=== PATIENT | female | born 1995 | race African-American/Black ===

== ENCOUNTER 2019-09-27 11:09 | Emergency (ER) | payer MEDICAID, OTHER ==
[~2019-09-27] VITALS: Ht 160 cm; Wt 66.4 kg
[~2019-09-27 11:09] MED LIST: ALBUTEROL INHALER; ARIP5SOL2 PO; ATOM100C PO; TRAZ150T79 PO
[2019-09-27] MEDS ORDERED: LIDOCAINE 1% 10 ML VIAL INJ ONE (12:15)
[2019-09-27 12:45] VITALS: BP 111/79
== END 2019-09-27 13:32 | disposition home or self-care (01) ==
LOC: EMS 11:09
DX: N75.0 Cyst of Bartholin's gland (principal); J45.909 Unspecified asthma, uncomplicated; F31.9 Bipolar disorder, unspecified; F20.9 Schizophrenia, unspecified; F12.90 Cannabis use, unspecified, uncomplicated; Z91.040 Latex allergy status

== ENCOUNTER 2021-04-02 02:06 | Emergency (ER) | payer OTHER ==
[~2021-04-02] VITALS: Ht 154.9 cm; Wt 90.9 kg
[2021-04-02 03:07] VITALS: BP 122/71
== END 2021-04-02 03:16 | disposition home or self-care (01) ==
LOC: EMS 02:07
DX: T43.591A Poisoning by other antipsychotics and neuroleptics, accidental (unintentional), initial encounter (principal); F32.9 Major depressive disorder, single episode, unspecified; F20.9 Schizophrenia, unspecified; Y92.89 Other specified places as the place of occurrence of the external cause
CPT/HCPCS: 93005; 99283

== ENCOUNTER 2022-06-27 14:34 | Emergency (ER) | payer OTHER ==
[~2022-06-27] VITALS: Ht 157.5 cm; Wt 91.8 kg
[2022-06-27 14:52] VITALS: BP 107/73
[2022-06-27] MEDS ORDERED: MELA3TAB89 PO (14:56)
[2022-06-27] MEDS ORDERED: PALI1.5T7 PO (14:56)
[2022-06-27 15:29] LABS: COVID AG,FIA SOURCE NASAL SWAB
[2022-06-27 15:51] LABS: INFLUENZA TYPE A NEGATIVE FOR TYPE A (NEGATIVE); INFLUENZA TYPE B NEGATIVE FOR TYPE B (NEGATIVE)
[2022-06-27] MEDS ORDERED: BENZ1LOZ50 PO (16:51)
[2022-06-27] MEDS ORDERED: BENZ-70 PO (16:51)
== END 2022-06-27 17:02 | disposition home or self-care (01) ==
LOC: EMS 14:34
DX: J06.9 Acute upper respiratory infection, unspecified (principal); F31.9 Bipolar disorder, unspecified; J45.909 Unspecified asthma, uncomplicated; F20.9 Schizophrenia, unspecified; Z91.040 Latex allergy status; Z79.899 Other long term (current) drug therapy; Z20.822 Contact with and (suspected) exposure to COVID-19
CPT/HCPCS: 71045; 87804; 99284

== ENCOUNTER 2022-07-03 11:04 | Emergency (ER) | payer OTHER ==
[~2022-07-03] VITALS: Ht 165.1 cm; Wt 109.1 kg
[~2022-07-03 11:04] MED LIST changes: -ALBUTEROL INHALER; -ARIP5SOL2 PO; -ATOM100C PO; +BENZ-70 PO; +BENZ1LOZ50 PO; +MELA3TAB89 PO; +PALI1.5T7 PO; -TRAZ150T79 PO
[2022-07-03 12:15] LABS: BASOPHILS % (AUTO) 0.2 % (0.0-2.0); EOSINOPHILS % (AUTO) 1.3 % (1.0-6.0); HEMATOCRIT 34.9 % (36-46); HEMOGLOBIN 12.1 g/dL (12.0-16.0); LYMPHOCYTES % (AUTO) 9.5 % (22.0-44.0); MEAN CORPUSCULAR HEMOGLOBIN 30.1 pg (26.0-34.0); MEAN CORPUSCULAR HGB CONC 34.5 G/dL (31.0-37.0); MEAN CORPUSCULAR VOLUME 87 fL (80-100); MONOCYTES # (AUTO) 0.5 K/uL (0.1-1.0); NEUTROPHILS # (AUTO) 8.7 K/uL (1.8-7.7); PLATELET COUNT (AUTO) 311 K/uL (150-450); RED BLOOD CELL COUNT(AUTO) 4.01 MIL/uL (4.00-5.20); RED CELL DISTRIBUTION WIDTH 13.7 % (11.5-14.5)
[2022-07-03] MEDS ORDERED: ONDANSETRON HCL 4 MG/2 ML VIAL IVP ONE (12:15)
[2022-07-03] MEDS ORDERED: KETOROLAC TROMETHAMINE 30 MG/ML VIAL IVP ONE (12:15)
[2022-07-03] MEDS ORDERED: SODIUM CHLORIDE 0.9% 1,000 ML IV ONE (12:15)
[2022-07-03 12:22] LABS: ANION GAP 10 mmol/L (8-16); CALCIUM, TOTAL 9.1 mg/dL (8.8-10.5); CARBON DIOXIDE 24 mmol/L (22-29); CHLORIDE 101 mmol/L (98-107); CREATININE 0.86 mg/dL (0.60-1.30); GLUCOSE,RANDOM 120 mg/dL (70-110); POTASSIUM 3.6 mmol/L (3.5-5.1); SODIUM SERUM 135 mmol/L (136-145); UREA NITROGEN, BLOOD 11 mg/dL (7-18)
[2022-07-03 12:25] LABS: GLOMERULAR FILTR. RATE CALC > 60 mL/min (>60)
[2022-07-03 12:35] LABS: ALANINE AMINOTRANSFERASE 49 U/L (12-78); ALBUMIN 3.4 g/dL (3.4-5.0); ALKALINE PHOSPHATASE 92 U/L (46-116); ASPARTATE AMINOTRANSFERASE 18 U/L (15-37); BILIRUBIN,TOTAL 0.3 mg/dL (0.1-1.0); HCG,QUANTITATIVE < 1 mIU/mL (0-6); LIPASE 58 U/L (73-393); TOTAL PROTEIN, SERUM 7.7 g/dL (6.4-8.2)
[2022-07-03 13:14] LABS: APPEARANCE,URINE CLEAR (CLEAR); BILIRUBIN,URINE NEGATIVE (NEGATIVE); GLUCOSE, URINE (UA) NEGATIVE (NEGATIVE); KETONES,URINE NEGATIVE (NEGATIVE); LEUKOCYTE ESTERASE ,URINE NEGATIVE (NEGATIVE); NITRATE,URINE NEGATIVE (NEGATIVE); OCCULT BLOOD,URINE NEGATIVE (NEGATIVE); PH,URINE 6.5 (5.0-8.0); PROTEIN,URINE NEGATIVE (NEGATIVE); SPECIFIC GRAVITIY, URINE 1.025 (1.003-1.030); UROBILINOGEN,URINE <=1.0 mg/dL (<=1.0)
[2022-07-03 14:00] VITALS: BP 116/69
== END 2022-07-03 14:22 | disposition home or self-care (01) ==
LOC: EMS 11:06
DX: R10.31 Right lower quadrant pain (principal); R10.32 Left lower quadrant pain; D27.0 Benign neoplasm of right ovary; J45.909 Unspecified asthma, uncomplicated; F31.9 Bipolar disorder, unspecified; F20.9 Schizophrenia, unspecified; F17.210 Nicotine dependence, cigarettes, uncomplicated; Z91.040 Latex allergy status
CPT/HCPCS: 99284; 74176; 96374; 96361; 96375; 80053; 81003; 83690; 84702; 85025; 36415; J1885; J2405; J7030

== ENCOUNTER 2022-09-22 11:17 | Emergency (ER) | payer OTHER ==
[~2022-09-22] VITALS: Ht 157.5 cm; Wt 96.8 kg
[~2022-09-22 11:17] MED LIST changes: -BENZ1LOZ50 PO; +BENZ1LOZ77 PO
[2022-09-22 14:10] LABS: BASOPHILS % (AUTO) 0.8 % (0.0-2.0); EOSINOPHILS % (AUTO) 3.4 % (1.0-6.0); HEMATOCRIT 43.5 % (36-46); HEMOGLOBIN 14.6 g/dL (12.0-16.0); LYMPHOCYTES # (AUTO) 2.6 K/uL (1.0-4.8); LYMPHOCYTES % (AUTO) 36.7 % (22.0-44.0); MEAN CORPUSCULAR HEMOGLOBIN 30.1 pg (26.0-34.0); MEAN CORPUSCULAR HGB CONC 33.6 G/dL (31.0-37.0); MEAN CORPUSCULAR VOLUME 90 fL (80-100); MONOCYTES # (AUTO) 0.4 K/uL (0.1-1.0); MONOCYTES % (AUTO) 5.1 % (2.0-9.0); NEUTROPHILS # (AUTO) 3.7 K/uL (1.8-7.7); PLATELET COUNT (AUTO) 366 K/uL (150-450); RED BLOOD CELL COUNT(AUTO) 4.87 MIL/uL (4.00-5.20); RED CELL DISTRIBUTION WIDTH 13.4 % (11.5-14.5)
[2022-09-22 14:25] LABS: ANION GAP 9 mmol/L (8-16); CARBON DIOXIDE 25 mmol/L (22-29); CHLORIDE 100 mmol/L (98-107); CREATININE 1.03 mg/dL (0.60-1.30); GLOMERULAR FILTR. RATE CALC > 60 mL/min (>60); GLUCOSE,RANDOM 86 mg/dL (70-110); POTASSIUM 3.8 mmol/L (3.5-5.1); SODIUM SERUM 134 mmol/L (136-145); UREA NITROGEN, BLOOD 10 mg/dL (7-18)
[2022-09-22 14:31] LABS: ALANINE AMINOTRANSFERASE 65 U/L (12-78); ALBUMIN 3.9 g/dL (3.4-5.0); ALKALINE PHOSPHATASE 129 U/L (46-116); ASPARTATE AMINOTRANSFERASE 20 U/L (15-37); BILIRUBIN,TOTAL 0.3 mg/dL (0.1-1.0); TOTAL PROTEIN, SERUM 9.1 g/dL (6.4-8.2)
[2022-09-22 14:34] VITALS: BP 104/58
== END 2022-09-22 15:23 | disposition home or self-care (01) ==
LOC: EMS 11:38
DX: R07.89 Other chest pain (principal); R42 Dizziness and giddiness; F41.9 Anxiety disorder, unspecified; F25.9 Schizoaffective disorder, unspecified; J45.909 Unspecified asthma, uncomplicated; F31.9 Bipolar disorder, unspecified; F17.210 Nicotine dependence, cigarettes, uncomplicated
CPT/HCPCS: 80053; 85025; 87389; 87491; 87591; 93005; 99284

== ENCOUNTER 2023-02-04 22:27 | Emergency (ER) | payer OTHER ==
[~2023-02-04] VITALS: Ht 162.6 cm; Wt 65.9 kg
[~2023-02-04 22:27] MED LIST changes: +BENZ-227 PO; -BENZ-70 PO
[2023-02-04 22:42] VITALS: BP 130/70
== END 2023-02-05 04:14 | disposition home or self-care (01) ==
LOC: EMS 22:31
DX: F25.9 Schizoaffective disorder, unspecified (principal); J45.909 Unspecified asthma, uncomplicated; F31.9 Bipolar disorder, unspecified; F17.210 Nicotine dependence, cigarettes, uncomplicated; Z91.040 Latex allergy status
CPT/HCPCS: 99284; Z7502

== ENCOUNTER 2023-04-18 19:27 | Emergency (ER) | payer OTHER ==
[~2023-04-18] VITALS: Ht 157.5 cm; Wt 95.9 kg
[2023-04-18 20:23] VITALS: BP 122/74
[2023-04-18 22:35] LABS: BASOPHILS % (AUTO) 0.3 % (0.0-2.0); HEMATOCRIT 36.6 % (36-46); HEMOGLOBIN 12.3 g/dL (12.0-16.0); LYMPHOCYTES # (AUTO) 2.4 K/uL (1.0-4.8); LYMPHOCYTES % (AUTO) 26.7 % (22.0-44.0); MEAN CORPUSCULAR HEMOGLOBIN 29.8 pg (26.0-34.0); MEAN CORPUSCULAR HGB CONC 33.6 G/dL (31.0-37.0); MEAN CORPUSCULAR VOLUME 89 fL (80-100); MONOCYTES # (AUTO) 0.6 K/uL (0.1-1.0); MONOCYTES % (AUTO) 6.7 % (2.0-9.0); NEUTROPHILS # (AUTO) 5.8 K/uL (1.8-7.7); NEUTROPHILS % (AUTO) 64.3 % (40.0-70.0); PLATELET COUNT (AUTO) 372 K/uL (150-450); RED BLOOD CELL COUNT(AUTO) 4.13 MIL/uL (4.00-5.20); RED CELL DISTRIBUTION WIDTH 13.2 % (11.5-14.5)
[2023-04-18 22:45] LABS: ANION GAP 10 mmol/L (8-16); CALCIUM, TOTAL 9.2 mg/dL (8.8-10.5); CARBON DIOXIDE 26 mmol/L (22-29); CHLORIDE 103 mmol/L (98-107); CREATININE 0.73 mg/dL (0.60-1.30); GLOMERULAR FILTR. RATE CALC > 60 mL/min (>60); GLUCOSE,RANDOM 95 mg/dL (70-110); POTASSIUM 3.9 mmol/L (3.5-5.1); SODIUM SERUM 139 mmol/L (136-145)
[2023-04-18 22:51] LABS: ALANINE AMINOTRANSFERASE 35 U/L (12-78); ALBUMIN 3.3 g/dL (3.4-5.0); ALKALINE PHOSPHATASE 95 U/L (46-116); ASPARTATE AMINOTRANSFERASE 22 U/L (15-37); BILIRUBIN,TOTAL 0.3 mg/dL (0.1-1.0); TOTAL PROTEIN, SERUM 7.3 g/dL (6.4-8.2)
== END 2023-04-18 23:16 | disposition home or self-care (01) ==
LOC: EMS 19:29
DX: F41.9 Anxiety disorder, unspecified (principal); J45.909 Unspecified asthma, uncomplicated; F31.9 Bipolar disorder, unspecified; F20.9 Schizophrenia, unspecified; F17.210 Nicotine dependence, cigarettes, uncomplicated; R20.2 Paresthesia of skin; Z91.040 Latex allergy status
CPT/HCPCS: 80053; 84703; 85025; 99283

== ENCOUNTER 2024-04-17 15:33 | Emergency (ER) | payer OTHER ==
[~2024-04-17] VITALS: Ht 157.5 cm; Wt 195.0 kg
[~2024-04-17 15:33] MED LIST changes: -BENZ1LOZ77 PO; +CEPACLZ PO
[2024-04-17 15:45] VITALS: BP 107/63
[2024-04-17] MEDS: SODIUM CHLORIDE 0.9% 1,000 ML IV ONE (16:24)
[2024-04-17] MEDS: DiphenhydrAMINE HCL 50 MG/ML VIAL IVP ONE (16:43)
[2024-04-17] MEDS: KETOROLAC TROMETHAMINE 30 MG/ML VIAL IVP ONE (16:43)
[2024-04-17] MEDS: METOCLOPRAMIDE HCL 5 MG/ML 2 ML VIAL IVP ONE (16:44)
[2024-04-17 16:55] LABS: BASOPHILS % (AUTO) 0.3 % (0.0-2.0); EOSINOPHILS % (AUTO) 3.5 % (1.0-6.0); HEMATOCRIT 40.6 % (36-46); HEMOGLOBIN 13.7 g/dL (12.0-16.0); LYMPHOCYTES # (AUTO) 1.8 K/uL (1.0-4.8); LYMPHOCYTES % (AUTO) 28.9 % (22.0-44.0); MEAN CORPUSCULAR HEMOGLOBIN 29.7 pg (26.0-34.0); MEAN CORPUSCULAR HGB CONC 33.7 G/dL (31.0-37.0); MEAN CORPUSCULAR VOLUME 88 fL (80-100); MONOCYTES # (AUTO) 0.6 K/uL (0.1-1.0); MONOCYTES % (AUTO) 9.5 % (2.0-9.0); NEUTROPHILS # (AUTO) 3.6 K/uL (1.8-7.7); NEUTROPHILS % (AUTO) 57.8 % (40.0-70.0); PLATELET COUNT (AUTO) 380 K/uL (150-450); RED CELL DISTRIBUTION WIDTH 13.1 % (11.5-14.5); WHITE BLOOD COUNT (AUTO) 6.3 K/uL (4.5-11.0)
[2024-04-17 17:06] LABS: ANION GAP 7 mmol/L (8-16); CALCIUM, TOTAL 9.4 mg/dL (8.8-10.5); CARBON DIOXIDE 28 mmol/L (22-29); CHLORIDE 103 mmol/L (98-107); CREATININE 0.99 mg/dL (0.60-1.30); GLOMERULAR FILTR. RATE CALC > 60 mL/min (>60); GLUCOSE,RANDOM 83 mg/dL (70-110); POTASSIUM 4.1 mmol/L (3.5-5.1); SODIUM SERUM 138 mmol/L (136-145); UREA NITROGEN, BLOOD 12 mg/dL (7-18)
[2024-04-17 17:07] LABS: ALCOHOL, BLOOD (SERUM) < 3 mg/dL (0-10)
[2024-04-17 17:13] LABS: ALANINE AMINOTRANSFERASE 43 U/L (12-78); ALBUMIN 3.6 g/dL (3.4-5.0); ALKALINE PHOSPHATASE 108 U/L (46-116); ASPARTATE AMINOTRANSFERASE 42 U/L (15-37); BILIRUBIN,TOTAL 0.6 mg/dL (0.1-1.0); TOTAL PROTEIN, SERUM 8.6 g/dL (6.4-8.2)
[2024-04-17 17:36] VITALS: PULSE 82; RESP 15
== END 2024-04-17 21:02 | disposition home or self-care (01) ==
LOC: EMS 15:33
DX: G43.909 Migraine, unspecified, not intractable, without status migrainosus (principal); F60.0 Paranoid personality disorder; Z91.040 Latex allergy status; Z79.899 Other long term (current) drug therapy
CPT/HCPCS: 99284; 96374; 96375; 71045; 96361; 80053; 84703; 85025; 36415; G0480; J1200; J1885; J2765; J7030